=== PATIENT | female | born 1970 | race Caucasian/White ===

== ENCOUNTER 2016-10-24 10:04 | Emergency (ER) | payer BC ==
[~2016-10-24] VITALS: Ht 170.2 cm; Wt 65.7 kg
--- OUTSIDE RECORDS SUMMARY | 2016-10-24 10:09 | XMS REPORT | Referral Summary ---
Author Author [facility] Organization [facility] Address Unknown Phone Unavailable Care Team Providers Care Retail Team Member Name Role Phone Petra Clarke Primary Care Physician [phone] Encounter VC Date(s): 07/15/15 - 07/15/15 [facility] [address], [address] [id number] Discharge Diagnosis: Well woman exam Discharge Disposition: -Home or Self Care Attending Physician: Bret Clarke MD Admitting Physician: Bret Clarke MD Vital Signs Most recent to 1 oldest [Reference Range]: Blood Pressure 102/72 mmHg [90-140/60-90 mmHg] (07/15/15 2:41 PM) Problem List No Known Problems Allergies, Adverse Reactions, Alerts No Known Medication Allergies Medications multivitamin 1 tabs, Chewed, Daily, 0 Refill(s) Start Date: 07/15/15 Status: Ordered Results No data available for this section Immunizations Vaccine Date Refusal Reason tetanus/diphth/pertuss (Tdap) adult/adol 07/15/15 tetanus-diphth toxoids (Td) adult/adol 10/23/96 Procedures No data available for this section Social History Social History Type Response Smoking Status Never smoker Assessment and Plan Extracted from: Title: Office Visit Note Author: Bret Clarke MD Date: 07/15/15 Assessment/Plan 1.Well woman exam No change in recommendations or medication. Update immunizations today. Ordered: Periodic Comp Preventive Med 40 to 64 years Est [id number]
--- OUTSIDE RECORDS SUMMARY | 2016-10-24 10:09 | XMS REPORT | Referral Summary ---
Author Author [facility] Organization [facility] Address Unknown Phone Unavailable Care Team Providers Care Cell Operator Name Role Phone Petra Clarke Primary Care Physician [phone] Encounter VC Date(s): 07/27/16 - 07/27/16 [facility] [address], [address] [address] Discharge Diagnosis: Well woman exam Discharge Disposition: 01-Home or Self Care Attending Physician: Bret Clarke MD Vital Signs Most recent to 1 oldest [Reference Range]: Blood Pressure 118/62 mmHg [90-140/60-90 mmHg] (07/27/16 2:53 PM) Problem List Condition Effective Dates Status Health Status Informant Allergies(Confirmed) Active Allergies, Adverse Reactions, Alerts No Known Medication Allergies Medications multivitamin 1 tabs, Chewed, Daily, 0 Refill(s) Start Date: 07/15/15 Status: Ordered Results No data available for this section Immunizations Given and Recorded Vaccine Date Status Refusal Reason tetanus/diphth/pertuss (Tdap) adult/adol 07/15/15 Given tetanus/diphth/pertuss (Tdap) adult/adol 06/03/09 Recorded hepatitis A adult vaccine 07/27/16 Given tetanus-diphth toxoids (Td) adult/adol 10/23/96 Given Procedures No data available for this section Social History Social History Type Response Smoking Status Never smoker Assessment and Plan Extracted from: Title: Office Visit Note Author: Bret Clarke MD Date: 07/27/16 Assessment/Plan 1.Well woman exam No change. Will update immunizations and then see again in about 1 year. Ordered: hepatitis A adult vaccine, 1 mL, IntraMuscular, Once, First Dose: 07/27/16 16:00:00 COYOTE HUNTER, Stop Date: 07/27/16 16:00:00 COYOTE HUNTER, Form: Vial Pathology [employer] Security Assessment Cytology Order Periodic Comp Preventive Med 40 to 64 years Est [id number]
[2016-10-24 10:10] VITALS: TEMP 97; Ht 170.2 cm; Wt 65.7 kg
[2016-10-24] MEDS ORDERED: NO KNOWN MEDS (10:33)
[2016-10-24] MEDS ORDERED: HYDROCORTISONE 2.5% CREAM 30 GM TOP ONE (10:45)
[2016-10-24] MEDS ORDERED: PredniSONE 10 MG TABLET PO ONE (10:45)
--- NOTE | 2016-10-24 10:45 | NUR ---
PREDNISONE PREDNISONE GIVEN PO FOR SWELLING OF FACE.
[2016-10-24] MEDS ORDERED: HYDROCORTISONE 1% CREAM 28 GM TOP ONE (11:00)
--- NOTE | 2016-10-24 11:05 | ERPDOC ---
Departure Disposition Decision Date: October 24, 2016 Disposition Decision Time: 11:04 Disposition: 01 DISCHARGED HOME, SELF-CARE Impression Impression Impression: Primary Impression: Contact dermatitis due to rhus toxicodendron Severity: Moderate Condition: Stable Seen By: Physician only Referrals: YOUR PHYSICIAN 1 Week Patient Instructions: Poison Marilee (ED) Problems/Meds/Labs Reviewed?: Yes Medications reviewed and manag: Yes Additional Instructions: You have poison marilee. Take the steroid and apply steroid cream as needed. Follow up immediately if you start to spike a high fever or get big swelling/blisters. Follow up with your doctor later this week. Follow up care ordered?: Yes Mental Status: Alert, Oriented Scripts Hydrocortisone Acetate (Hydrocortisone Acetate) 28.4 Gm Cream..g. 1 APPLIC TOP Q6H for 14 Days Prov: DO 10/24/16 Prednisone (Prednisone) 20 Mg Tablet 60 MG PO DAILY for 5 Days, #15 TAB 0 Refills Take daily each morning Prov: DO 10/24/16 HPI - Skin General General Chief Complaint: Allergic Reaction Stated Complaint: ALLERGIC REACTION, SWELLING, HIVES ON FACE Time Seen by Provider: 10:39 Source: patient Exam Limitations: no limitations HPI - Skin General Initial Comments 46yo woman presents to the ER with left-sided facial swelling. Pt is not sure why she has it; sx started 5 days ago. Four days ago, pt got a 'shot in my butt' ; sx have not improved and have worsened. Pt now has unilateral facial swelling along with erythema, crusting and weeping. Pt has similar sx on her left back/ neck and legs. Occurred At: home Onset: Rapid, Getting worse Duration: 1 week Pain Scale: Now & Worst: 4/10 Severity: moderate Location: face, torso, extremities 1 - Swelling, erythema, crusting, and weeping 2 - Swelling, erythema, crusting, and weeping 1 - Swelling, erythema, crusting, and weeping Possible Cause: no cause identified Modifying Factors: WORSE WITH: scratching Associated Symptoms: change in skin texture, edema Hx of Similar Symptoms: No Allergies: Coded Allergies: No Known Allergies (Unverified , 10/24/16) Past History Past Medical History Pt denies signifigant PMH Review of Systems Integumentary Skin: color change, itching, rash Comments Swelling, erythema, crusting, and weeping All other Systems All Other Systems: Reviewed and Negative Physical Exam General General Nourishment: well nourished, well developed, appears stated age, no acute distress, adult Vitals and Pain First Documented Vital Signs Date Time Temp Pulse Resp B/P Pulse Ox O2 Delivery O2 Flow Rate FiO2 10/24/16 10:10 97.0 57 20 147/72 100 Room Air Weight: Kilograms: 65.700 Height (feet): 5 Height (inches): 7.00 Triage Pain Scale: Integumentary (brief) Comments Erythematous rash along pts left shoulder and left face with overlying crusting and weeping. Supervisory Exam Head: atraumatic Eyes: PERRL Nares: no exudate Neck: trachea midline Chest: symmetric Abdomen: non-distended Musculoskeletal: no deformity or atrophy Neurological: no abnormal movements Psychological: alert, appropriate Differential Diagnoses Considering: Abscess, Cellulitis, Folliculitis, Poison Marilee Dermatitis, Insect Sting, Toxic Epidermal Necrolysi Progress Results/Orders Orders Procedure Category Date Status Time Prednisone PHA 10/24/16 Complete (Prednisone) 10:45 Hydrocortisone 1% PHA 10/24/16 Complete Cream (Cortizone-10 Cr 11:00 Medications Current ED Medications Prednisone (PredniSONE) 60 mg O ONCE PO Last administered on 10/24/16 10:45; Start 10/24/16 at 10:45; Stop 10/24/16 at 10:46; Status DC Hydrocortisone (Anusol-Hc) 1 applic O ONCE TOP ; Start 10/24/16 at 10:45; Stop 10/24/16 at 10:46; Status Cancel Hydrocortisone (Cortizone-10 Cream) 1 applic O ONCE TOP Last administered on 11:16; Start 10/24/16 at 11:00; Stop 10/24/16 at 11:02; Status DC Progress Progress Pt with rhus dermatitis (most likely); still in the Ddx is impetigo (though PE and VS do not support this dx). Will give PO and topical steroids to help clear the dermatitis. Excellent precautions given for RTC. Pt voiced understanding of dx, prognosis, and tx. F/u with PCM. JORGE LUIS OLEARY DO October 24, 2016 11:05
[2016-10-24] MEDS ORDERED: HYDR28.472 TOP (11:08)
[2016-10-24] MEDS ORDERED: PRED20TA PO (11:08)
--- NOTE | 2016-10-24 11:10 | NUR ---
CORTISONE CREAM CORTISONE CREAM APPLIED TO DRY PATCHY AREAS AROUND LT. EYE. REMAINDER OF THE TUBE SENT HOME WITH PATIENT.
--- NOTE | 2016-10-24 11:20 | NUR ---
DISMISSAL NOTE DISMISSAL INSTRUCTIONS GIVEN TO PT. AND NO FURTHER QUESTIONS. RX. X 2 GIVEN TO PT. PT. LEFT ED AMBULATORY WITH .
[2016-10-24 12:11] VITALS: BP 131/76; PULSE 68; RESP 18; O2SAT 98
== END 2016-10-24 11:20 | disposition home or self-care (01) ==
LOC: ED 10:04
DX: L23.7 Allergic contact dermatitis due to plants, except food (principal)
CPT/HCPCS: 99283; J7512